=== PATIENT | male | born 1960 | race African-American/Black ===

== ENCOUNTER 2021-10-10 23:37 | Observation (INO) | payer BC ==
[2021-10-10] MEDS ORDERED: Aspirin Chewable 81 MG TAB ONE (23:56)
[2021-10-10] MEDS ORDERED: Nitroglycerin 2% Ointment 1 INCH/1 GM Packet ONE (23:56)
[2021-10-11 00:12] LABS: #Basophils 0.1 10x3/uL (0.0-0.2); #Eosinphils 0.3 10x3/uL (0.0-0.5); #Monocytes 0.8 10x3/uL (0.0-1.1); #Neutrophils 4.3 10x3/uL (1.5-8.4); %Basophils 0.7 % (0.0-2.0); %Lymphocytes 34.6 % (18.0-47.0); %Monocytes 9.6 % (0.0-10.0); %Neutrophils 50.7 % (40.0-75.0); Hemoglobin 12.2 g/dL (13.5-17.5); Mean Corpuscular HGB CONC 33.3 g/dL (32.0-36.0); Mean Corpuscular Hemoglobin 28.6 pg (27.0-33.0); Mean Corpuscular Volume 85.7 fl (81.2-95.1); Mean Platelet Volume 11.2 fl (7.4-10.4); Platelet Count 284 10x3/uL (150-450); RBC Distribution Width 11.8 % (11.5-14.5); Red Blood Cell (RBC) Count 4.27 10x6/uL (4.32-5.72); White Blood Cell (WBC) Count 8.4 10x3/uL (3.5-10.5)
[2021-10-11 00:25] LABS: ALT (SGPT) 16 U/L (8-55); AST (SGOT) 17 U/L (5-34); Albumin 4.2 g/dL (3.5-5.0); Alkaline Phosphatase 65 U/L (40-110); Anion Gap 17 mmol/L (10-20); BUN (Urea Nitrogen) 28 mg/dL (8.4-25.7); Bilirubin, Total 0.3 mg/dL (0.2-1.2); CK (CPK) 347 U/L (30-200); Calc. Creatinine Clearance 0 mL/min (70-130); Calcium 9.4 mg/dL (7.8-10.44); Carbon Dioxide 22 mmol/L (22-29); Chloride 100 mmol/L (98-107); Globulin 3.6 g/dL (2.4-3.5); Glucose 336 mg/dL (70-105); Lipase 57 U/L (8-78); Potassium 4.6 mmol/L (3.5-5.1); Protein, Total 7.8 g/dL (6.0-8.3); Sodium 134 mmol/L (136-145)
[2021-10-11] MEDS ORDERED: Enoxaparin Sodium 30 MG/0.3 ML SYRINGE ONE (00:52)
[2021-10-11] MEDS ORDERED: Enoxaparin Sodium 80 MG/0.8 ML SYRINGE ONE (00:52)
[2021-10-11] MEDS ORDERED: Senokot S 8.6-50 MG TAB PO PRN (00:57)
[2021-10-11] MEDS ORDERED: Guaifenesin DM 100-10/5 ML UDCUP PO PRN (00:57)
[2021-10-11] MEDS ORDERED: HYDROcodone/Acetaminophen 5/325 mg Tablet PO PRN (00:57)
[2021-10-11] MEDS ORDERED: Acetaminophen 325 MG TAB PO PRN (00:57)
[2021-10-11] MEDS ORDERED: Ondansetron PF 4 MG/2 ML Vial IVP PRN (00:57)
[2021-10-11] MEDS ORDERED: Zolpidem Tartrate 5 MG TAB PO PRN (00:57)
[2021-10-11] MEDS ORDERED: Calcium Carbonate 500 MG ChewTAB PO PRN (00:57)
[2021-10-11] MEDS ORDERED: Dextrose 5% in Water 1,000 ML IV PRN (00:57)
[2021-10-11] MEDS ORDERED: Dextrose 50% Abboject 50 ML SYRINGE SLOW IVP PRN (00:57)
[2021-10-11] MEDS ORDERED: Nitroglycerin 0.4 MG TAB (25 Tab Bottle) SL PRN (01:01)
[2021-10-11] MEDS ORDERED: Colchicine 0.6 MG TAB PO SCH (01:15)
[2021-10-11] MEDS ORDERED: Famotidine/PF 20 mg/2ml Vial SLOW IVP SCH (01:15)
[2021-10-11] MEDS ORDERED: Ibuprofen 200 MG TAB PO SCH (01:15)
[2021-10-11] MEDS ORDERED: predniSONE 50 MG TAB PO SCH (01:30)
[2021-10-11 01:54] VITALS: BMI 32.7
[2021-10-11 04:34] LABS: Anion Gap 18 mmol/L (10-20); BUN (Urea Nitrogen) 26 mg/dL (8.4-25.7); Calc. Creatinine Clearance 61 mL/min (70-130); Calcium 9.3 mg/dL (7.8-10.44); Carbon Dioxide 19 mmol/L (22-29); Chloride 104 mmol/L (98-107); Glucose 316 mg/dL (70-105); Potassium 4.5 mmol/L (3.5-5.1); Sodium 136 mmol/L (136-145); Uric Acid 9.5 mg/dL (3.5-7.2)
[2021-10-11] MEDS: metFORMIN 500 MG TAB PO SCH ×2 (06:36→17:31)
[2021-10-11] MEDS: glipiZIDE 5 MG TAB PO SCH (06:36)
[2021-10-11 07:01] LABS: Troponin I Less than 0.010 ng/mL (< 0.028)
[2021-10-11] MEDS ORDERED: Famotidine 20 MG TAB PO SCH (09:00)
[2021-10-11] MEDS: NIFEdipine XL 60 MG TAB PO SCH ×2 (11:38→21:02)
[2021-10-11] MEDS: HumaLOG 300 UNITS/3 ML VIAL SC PRN ×2 (11:49→20:59)
[2021-10-11] MEDS ORDERED: NPH, Human Insulin Isophane 300 UNIT/3 ML VIAL SC SCH (17:00)
[2021-10-11] MEDS ORDERED: Enoxaparin Sodium 40 MG/0.4 ML SYRINGE SC SCH (21:00)
[2021-10-12] MEDS: HumaLOG 300 UNITS/3 ML VIAL SC PRN ×2 (06:12→12:39)
[2021-10-12] MEDS: glipiZIDE 5 MG TAB PO SCH (06:12)
[2021-10-12] MEDS: metFORMIN 500 MG TAB PO SCH ×2 (08:51→18:05)
[2021-10-12 08:56] LABS: #Basophils 0.1 10x3/uL (0.0-0.2); #Eosinphils 0.2 10x3/uL (0.0-0.5); #Monocytes 0.6 10x3/uL (0.0-1.1); #Neutrophils 4.7 10x3/uL (1.5-8.4); %Basophils 0.7 % (0.0-2.0); %Eosinophils 2.6 % (0.0-6.0); %Lymphocytes 40.1 % (18.0-47.0); %Neutrophils 50.1 % (40.0-75.0); Hemoglobin 12.3 g/dL (13.5-17.5); Mean Corpuscular HGB CONC 33.3 g/dL (32.0-36.0); Mean Corpuscular Hemoglobin 28.3 pg (27.0-33.0); Mean Platelet Volume 10.8 fl (7.4-10.4); Platelet Count 311 10x3/uL (150-450); RBC Distribution Width 11.9 % (11.5-14.5); Red Blood Cell (RBC) Count 4.34 10x6/uL (4.32-5.72); White Blood Cell (WBC) Count 9.4 10x3/uL (3.5-10.5)
[2021-10-12] MEDS ORDERED: [UNRECOGNIZED DRUG - OTHER] PO SCH (09:00)
[2021-10-12] MEDS ORDERED: BENAZEPRIL PO SCH (09:00)
[2021-10-12] MEDS ORDERED: NIFEdipine XL 60 MG TAB PO SCH (09:00)
[2021-10-12] MEDS ORDERED: HYDROCHLOROTHIAZIDE PO SCH (09:00)
[2021-10-12 09:20] LABS: Anion Gap 18 mmol/L (10-20); BUN (Urea Nitrogen) 31 mg/dL (8.4-25.7); Calc. Creatinine Clearance 60 mL/min (70-130); Calcium 10.2 mg/dL (7.8-10.44); Carbon Dioxide 20 mmol/L (22-29); Chloride 103 mmol/L (98-107); Glucose 214 mg/dL (70-105); Potassium 3.9 mmol/L (3.5-5.1); Sodium 137 mmol/L (136-145)
[2021-10-12 16:42] VITALS: BP 136/86; TEMP 97.9
[2021-10-16 13:03] LABS: ANA Symphony (Qualitative) Negative (Negative); ANA Symphony (Quantitative) 0.6 Ratio (< 0.7 Negative); CCP IgG Antibody 5.5 EliAU/mL (<7 Negative); EliA RAS New Method **** NEW METHOD ****; Rheumatoid Factor IgM Antibody 0.5 IU/mL (<3.5 Negative); dsDNA IgG Antibody 1.6 IU/mL (<10 Negative)
== END 2021-10-12 18:23 | disposition home or self-care (01) ==
LOC: CSHERS 23:37 → CSHTELE 10-11 01:46
PROVIDERS: ADMIT Student in an Organized Health Care Education/Training Program; ATTEND Hospitalist
DX: R07.81 Pleurodynia (principal); M10.9 Gout, unspecified; I12.9 Hypertensive chronic kidney disease with stage 1 through stage 4 chronic kidney disease, or unspecified chronic kidney disease; E11.22 Type 2 diabetes mellitus with diabetic chronic kidney disease; N18.32 Chronic kidney disease, stage 3b; C90.00 Multiple myeloma not having achieved remission; Z20.822 Contact with and (suspected) exposure to COVID-19; Z79.84 Long term (current) use of oral hypoglycemic drugs; Z79.899 Other long term (current) drug therapy; Z88.0 Allergy status to penicillin; Z88.2 Allergy status to sulfonamides; Z52.4 Kidney donor
CPT/HCPCS: 36415; 36416; 71045; 76770; 78451; 80048; 80053; 82550; 83520; 83690; 83880; 84484; 84550; 85025; 85379; 85652; 86038; 86140; 86200; 86225; 93005; 93306; 93970; 96360; 96361; 96372; 96374; A9540; G0378; J1650; J1815; J7512; S0028; U0003; U0005

== ENCOUNTER 2024-11-22 23:35 | Emergency (ER) | payer MEDICARE, BC ==
[2024-11-22] MEDS ORDERED: Orphenadrine Citrate 60 MG/2 ML VIAL ONE (23:47)
[2024-11-22] MEDS ORDERED: Ketorolac Tromethamine 30 MG (1 mL) VIAL ONE (23:51)
[2024-11-23] MEDS ORDERED: Ketorolac Tromethamine 30 MG (1 mL) VIAL ONE (00:17)
[2024-11-23] MEDS ORDERED: Oxybutynin 5 MG TAB PO SCH (00:30)
[2024-11-23 00:47] LABS: #Basophils 0.04 10x3/uL (0.0-0.2); #Eosinophils 0.25 10x3/uL (0.0-0.5); #Monocytes 0.52 10x3/uL (0.0-1.1); #Neutrophils 4.46 10x3/uL (1.5-8.4); %Basophils 0.5 % (0.0-2.0); %Eosinophils 3.4 % (0.0-6.0); %Lymphocytes 27.7 % (18.0-47.0); %Monocytes 7.0 % (0.0-10.0); %Neutrophils 60.3 % (40.0-75.0); Hematocrit 35.2 % (38.8-50.0); Hemoglobin 11.8 g/dL (13.5-17.5); Mean Corpuscular Hemoglobin 29.9 pg (27.0-33.0); Mean Corpuscular Volume 89.1 fL (81.2-95.1); Platelet Count 243 10x3/uL (150-450); Red Blood Cell (RBC) Count 3.95 10x6/uL (4.32-5.72); White Blood Cell (WBC) Count 7.40 10x3/uL (3.5-10.5)
[2024-11-23 00:58] LABS: ALT (SGPT) 12 U/L (Less than 45); AST (SGOT) 17 U/L (11-34); Albumin 4.7 g/dL (3.1-4.5); Alkaline Phosphatase 59 U/L (40-110); Anion Gap 17 mmol/L (10-20); BUN (Urea Nitrogen) 23 mg/dL (8.4-25.7); Bilirubin, Total 0.3 mg/dL (0.3-1.2); Calc. Creatinine Clearance 0 mL/min (70-130); Calcium 9.3 mg/dL (7.8-10.44); Carbon Dioxide 17 mmol/L (23-31); Chloride 104 mmol/L (98-107); Globulin 4.2 g/dL (2.4-3.5); Potassium 4.1 mmol/L (3.5-5.1); Sodium 134 mmol/L (136-145)
[2024-11-23 01:04] LABS: Glucose 520 mg/dL (80-115)
[2024-11-23 01:07] LABS: Glucose, Urine (Dipstick) >=1000 mg/dL (Negative); Leukocyte Negative (Negative); Protein, Urine (Dipstick) 30 mg/dl (Neg-Trace); Specific Gravity, Urine 1.015 (1.005-1.030)
[2024-11-23 01:09] LABS: Bacteria/HPF None Seen HPF (None Seen); CAUTI Indications for Culture Pelvic or flank pain; RBC/HPF None Seen HPF (0-3); WBC/HPF None Seen HPF (0-3)
[2024-11-23 01:10] LABS: Urine Culture Reflex No No
== END 2024-11-23 02:24 | disposition short-term general hospital (02) ==
LOC: CSHERS 23:35
DX: N32.89 Other specified disorders of bladder (principal); R33.9 Retention of urine, unspecified; E11.65 Type 2 diabetes mellitus with hyperglycemia; E11.22 Type 2 diabetes mellitus with diabetic chronic kidney disease; I12.0 Hypertensive chronic kidney disease with stage 5 chronic kidney disease or end stage renal disease; N18.9 Chronic kidney disease, unspecified; Z79.84 Long term (current) use of oral hypoglycemic drugs; I12.9 Hypertensive chronic kidney disease with stage 1 through stage 4 chronic kidney disease, or unspecified chronic kidney disease
CPT/HCPCS: 36416; 51702; 51798; 80053; 81001; 85025; 96372; 96374; 96375; 99283; J1815; J1885; J2360